=== PATIENT | female | born 1950 | race Caucasian/White ===

== ENCOUNTER → 2017-06-08 | Outpatient (CLI) | payer OTHER | END | disposition home or self-care (01) | LOC: CFH 15:14 | PROVIDERS: ATTEND Obstetrics & Gynecology | DX: Z12.31 Encounter for screening mammogram for malignant neoplasm of breast (principal) | CPT/HCPCS: G0202 ==

== ENCOUNTER → 2018-06-03 | Outpatient (CLI) | payer OTHER ==
[2018-06-03 07:22] LABS: BASOPHILS # (AUTO) 0.02 x10^3/uL (0-0.1); BASOPHILS % (AUTO) 0 % (0-1); EOSINOPHILS # (AUTO) 0.13 x10^3/uL (0-0.4); EOSINOPHILS % (AUTO) 2 % (1-7); LYMPHOCYTES % (AUTO) 28 % (22-44); MD NO; MEAN CORPUSCULAR VOLUME 88.4 fL (80-100); MEAN PLATELET VOLUME 9.3 fL (7.4-10.4); MONOCYTES # (AUTO) 0.51 x10^3/uL (0.2-0.8); MONOCYTES % (AUTO) 6 % (2-9); NEUTROPHILS # (AUTO) 5.29 x10^3/uL (1.8-6.8); NEUTROPHILS % (AUTO) 64 % (42-75); PLATELET COUNT 272 x10^3/uL (130-400); RED BLOOD COUNT 4.72 x10^6/uL (3.82-5.3); RED CELL DISTRIBUTION WIDTH 14.5 % (9.6-15.2)
[2018-06-03 07:33] LABS: ALANINE AMINOTRANSFERASE 25 U/L (12-78); ALBUMIN 4.1 g/dL (3.4-5.0); ANION GAP 8 mmol/L (5-15); CALCIUM 8.7 mg/dL (8.5-10.1); CHLORIDE 105 mmol/L (98-107); CREATININE 0.88 mg/dL (0.55-1.02)
[2018-06-03 07:35] LABS: ALKALINE PHOSPHATASE 64 U/L (45-117); BILIRUBIN,TOTAL 0.5 mg/dL (0.2-1.0); TOTAL PROTEIN 7.4 g/dL (6.4-8.2)
== END | disposition home or self-care (01) ==
LOC: LAB 07:03
PROVIDERS: ATTEND Family Medicine
DX: E03.9 Hypothyroidism, unspecified (principal); H93.13 Tinnitus, bilateral
CPT/HCPCS: 36415; 80053; 85025

== ENCOUNTER → 2018-06-14 | Outpatient (CLI) | payer OTHER ==
[2018-06-14 10:54] LABS: CHOL/HDL RATIO 2.6; FREE T4 (FREE THYROXINE) 1.35 ng/dL (0.76-1.46); LDL/HDL RATIO 1.4 (0.5-3.0); THYROID STIMULATING HORMONE 1.66 mIU/L (0.358-3.740)
== END | disposition home or self-care (01) ==
LOC: LAB 10:14
PROVIDERS: ATTEND Family Medicine
DX: Z00.01 Encounter for general adult medical examination with abnormal findings (principal); E03.9 Hypothyroidism, unspecified; H93.13 Tinnitus, bilateral
CPT/HCPCS: 36415; 80061; 84439; 84443

== ENCOUNTER → 2018-08-10 | Outpatient (CLI) | payer OTHER | END | disposition home or self-care (01) | LOC: CFH 15:06 | PROVIDERS: ATTEND Obstetrics & Gynecology | DX: Z12.31 Encounter for screening mammogram for malignant neoplasm of breast (principal) | CPT/HCPCS: 77067 ==

== ENCOUNTER 2019-05-22 07:43 | Outpatient (CLI) | payer OTHER | END 2019-05-22 23:59 | disposition home or self-care (01) | LOC: LAB 07:43 | PROVIDERS: ATTEND Family Medicine | DX: E03.9 Hypothyroidism, unspecified (principal); H93.13 Tinnitus, bilateral | CPT/HCPCS: 36415; 80053; 80061; 84439; 84443; 85027 ==

== ENCOUNTER → 2019-10-04 | Outpatient (CLI) | payer OTHER | END | disposition home or self-care (01) | LOC: CFH 15:25 | PROVIDERS: ATTEND Obstetrics & Gynecology | DX: Z12.31 Encounter for screening mammogram for malignant neoplasm of breast (principal) | CPT/HCPCS: 77067 ==

== ENCOUNTER → 2020-06-11 | Outpatient (CLI) | payer OTHER ==
[2020-06-11 08:05] LABS: BASOPHILS # (AUTO) 0.04 x10^3/uL (0-0.1); BASOPHILS % (AUTO) 1 % (0-1); EOSINOPHILS # (AUTO) 0.27 x10^3/uL (0-0.4); EOSINOPHILS % (AUTO) 4 % (1-7); LYMPHOCYTES # (AUTO) 2.08 x10^3/uL (1-3.4); LYMPHOCYTES % (AUTO) 30 % (22-44); MD NO; MEAN CORPUSCULAR HEMOGLOBIN 29.5 pg (27.0-34.8); MEAN CORPUSCULAR HGB CONC 32.5 g/dL (32.4-35.8); MEAN PLATELET VOLUME 8.9 fL (7.4-10.4); MONOCYTES # (AUTO) 0.58 x10^3/uL (0.2-0.8); MONOCYTES % (AUTO) 9 % (2-9); NEUTROPHILS # (AUTO) 3.91 x10^3/uL (1.8-6.8); NEUTROPHILS % (AUTO) 57 % (42-75); PLATELET COUNT 272 x10^3/uL (130-400); RED BLOOD COUNT 4.73 x10^6/uL (3.82-5.3); RED CELL DISTRIBUTION WIDTH 14.6 % (9.6-15.2)
[2020-06-11 08:09] LABS: ALBUMIN 3.9 g/dL (3.4-5.0); ANION GAP 3 mmol/L (5-15); CALCIUM 8.7 mg/dL (8.5-10.1); CHLORIDE 107 mmol/L (98-107)
[2020-06-11 08:17] LABS: ALANINE AMINOTRANSFERASE 23 U/L (12-78); ALKALINE PHOSPHATASE 62 U/L (45-117); BILIRUBIN,TOTAL 0.4 mg/dL (0.2-1.0); CHOL/HDL RATIO 2.6; CHOLESTEROL, TOTAL 205 mg/dL (140-239); CREATININE 0.89 mg/dL (0.55-1.02); FREE T4 (FREE THYROXINE) 1.28 ng/dL (0.76-1.46); HDL CHOL % 38 % (28-40); HDL CHOLESTEROL (DIRECT) 78 mg/dL (40-60); LDL CHOLESTEROL,CALCULATED 115 mg/dL (54-169); LDL/HDL RATIO 1.5 (0.5-3.0); TOTAL PROTEIN 7.4 g/dL (6.4-8.2); TRIGLYCERIDES 61 mg/dL (50-200); VLDL CHOLESTEROL 12 mg/dL (0-25)
== END | disposition home or self-care (01) ==
LOC: LAB 07:44
PROVIDERS: ATTEND Nurse Practitioner Primary Care
DX: Z00.00 Encounter for general adult medical examination without abnormal findings (principal)
CPT/HCPCS: 36415; 80053; 80061; 84439; 84443; 84481; 85025